=== PATIENT | female | born 1985 | race African-American/Black ===

== ENCOUNTER 2018-03-01 13:00 | Emergency (ER) | payer MEDICAID ==
[~2018-03-01] VITALS: Ht 160 cm; Wt 59.0 kg
[2018-03-01 13:03] VITALS: BP 116/71
[2018-03-01] MEDS ORDERED: LORazepam Inj 2mg/ml 1ml IV ONE (13:15)
[2018-03-01] MEDS ORDERED: levETIRAcetam 500 MG in D5W 110 ML IV ONE (13:15)
--- NOTE | 2018-03-01 13:21 | Emergency Room Report ---
History of Present Illness General Chief Complaint: Seizure Source: Patient, EMS Present Illness HPI EMS were summoned because the patient had a seizure. The patient was at work. She's had a history of one prior seizure in the past. It was felt to be related to alcohol withdrawal and so she does not take any medication. She has been driving. The patient bit her inner lip and also has some blood coming out of her left ear canal. [place] [facility] [place] however they still directed the patient to our facility. The patient is complaining about headache and lip pain. She states her last period was February 27 and she does not believe she is . She's been having abdominal problems with the alcohol consumption. She has epigastric pain and nausea on occasion. She denies vomiting blood or melena. She denies dysuria. No neck or spine tenderness. No dyspnea or cough. 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 Nursing Documentation: PMH: Agreed; PSxH: Agreed Nursing Documentation-PMH Past Medical History: No History, Except For Hx Seizures: Yes Review of Systems All Other Systems: negative except mentioned in HPI Physical Exam Vital Signs Date Time Temp Pulse Resp B/P (MAP) Pulse Ox O2 Delivery O2 Flow Rate FiO2 03/01/18 12:56 99.0 80 16 103/71 99 Room Air 99.0 Sp02 EP Interpretation: reviewed, normal General Appearance: well appearing, no apparent distress, Postictal Head: normocephalic Eyes: bilateral eye normal inspection, bilateral eye PERRL, bilateral eye EOMI ENT: hearing grossly normal, moist mucus membranes - inner lip contusion, tongue macerations, other - blood from L ear canal Neck: supple, no bony tend Respiratory: chest non-tender, lungs clear, normal breath sounds Cardiovascular #1: regular rate, rhythm Cardiovascular #2: 2+ radial (R) Gastrointestinal: normal inspection, non tender, no mass, non-distended, decreased bowel sounds, scaphoid Genitourinary: no CVA tenderness Musculoskeletal: back normal, normal range of motion, non-tender, no calf tenderness Neurologic: alert, machine whitener III-XII nml as tested, motor strength/tone normal, DTRs symmetric, sensory intact, cerebellar normal, speech normal - somewhat halting, oriented - X2 Psychiatric: depressed affect Skin: normal inspection, warm/dry Medical Decision Making Diagnostic Impression: Primary Impression: Seizure Additional Impressions: Head injury Qualified Codes: S09.90XA - Unspecified injury of head, initial encounter Alcohol abuse Left ear canal injury ER Course Patient presents with a second seizure. Differential includes withdrawal, underlying seizure disorder amongst others. She has blood coming from the left ear canal and we need to exclude a basilar skull fracture. CT is indicated as well as labs. The patient retreated with Ativan and Keppra. Also DMV will be notified. EKG without injury. CXR clear. CT without bleed or fx. Labs with + BA. K slightly low. Patient with clearing. Reports withdrawal symptoms if stops drinking and requests med for this. Advised of seizure precautions and need for follow up. Patient stable for outpatient observation and treatment. Laboratory Tests Test 03/01/18 13:20 03/01/18 14:20 White Blood Count 5.3 K/UL (4.8-10.8) Red Blood Count 3.85 M/UL (4.20-5.40) L Hemoglobin 13.2 G/DL (12.0-16.0) Hematocrit 37.8 % (37.0-47.0) Mean Corpuscular Volume 98 FL (80-99) Mean Corpuscular Hemoglobin 34.2 PG (27.0-31.0) H Mean Corpuscular Hemoglobin Concent 34.8 G/DL (32.0-36.0) Red Cell Distribution Width 11.1 % (11.6-14.8) L Platelet Count 132 K/UL (150-450) L Mean Platelet Volume 8.9 FL (6.5-10.1) Neutrophils (%) (Auto) 65.7 % (45.0-75.0) Lymphocytes (%) (Auto) 20.4 % (20.0-45.0) Monocytes (%) (Auto) 9.7 % (1.0-10.0) Eosinophils (%) (Auto) 2.5 % (0.0-3.0) Basophils (%) (Auto) 1.9 % (0.0-2.0) Sodium Level 137 MMOL/L (136-145) Potassium Level 3.3 MMOL/L (3.5-5.1) L Chloride Level 100 MMOL/L (98-107) Carbon Dioxide Level 24 MMOL/L (21-32) Anion Gap 13 mmol/L (5-15) Blood Urea Nitrogen 3 mg/dL (7-18) L Creatinine 0.7 MG/DL (0.55-1.30) Estimate Glomerular Filtration Rate > 60 mL/min (>60) Glucose Level 96 MG/DL (74-106) Calcium Level 9.2 MG/DL (8.5-10.1) Total Bilirubin 0.6 MG/DL (0.2-1.0) Aspartate Amino Transferase (AST) 101 U/L (15-37) H Alanine Aminotransferase (ALT) 51 U/L (12-78) Alkaline Phosphatase 89 U/L (46-116) Total Protein 8.2 G/DL (6.4-8.2) Albumin 3.9 G/DL (3.4-5.0) Globulin 4.3 g/dL Albumin/Globulin Ratio 0.9 (1.0-2.7) L Salicylates Level 3.7 ug/mL (2.8-20) Acetaminophen Level < 2 MCG/ML (10-30) L Serum Alcohol 49 mg/dL Urine HCG, Qualitative Negative (NEGATIVE) Urine Opiates Screen Negative (NEGATIVE) Urine Barbiturates Screen Negative (NEGATIVE) Phencyclidine (PCP) Screen Negative (NEGATIVE) Urine Amphetamines Screen Negative (NEGATIVE) Urine Benzodiazepines Screen Negative (NEGATIVE) Urine Cocaine Screen Negative (NEGATIVE) Urine Marijuana (THC) Screen Negative (NEGATIVE) EKG Diagnostic Results Rate: normal Rhythm: NSR ST Segments: no acute changes Rhythm Strip Diag. Results EP Interpretation: yes Rhythm: NSR, no PVC's, no ectopy Chest X-Ray Diagnostic Results Chest X-Ray Diagnostic Results : Chest X-Ray Ordered: Yes # of Views/Limited/Complete: 1 View Indication: Other EP Interpretation: Yes Interpretation: no consolidation, no effusion, no pneumothorax Impression: No acute disease Electronically Signed by: Electronically signed by Ky Daniel MD CT/MRI/US Diagnostic Results CT/MRI/US Diagnostic Results : Imaging Test Ordered: head Impression no bleed, mass, fx Last Vital Signs Date Time Temp Pulse Resp B/P (MAP) Pulse Ox O2 Delivery O2 Flow Rate FiO2 03/01/18 15:25 98.6 93 24 121/69 100 Room Air 210.0 Status: improved Disposition: HOME, SELF-CARE Condition: Improved Scripts Neomycin/Polymyxin B Sulf/Hc* (CORTISPORIN EAR SOLUTION*) 10 Ml Solution 4 DROP LEFT EAR QID, #10 ML 0 Refills Prov: Ky Daniel M.D. 03/01/18 Levetiracetam (KEPPRA) 500 Mg Tablet 500 MG ORAL EVERY 12 HOURS, #60 TAB 0 Refills Prov: Ky Daniel M.D. 03/01/18 Chlordiazepoxide Hcl* (LIBRIUM*) 10 Mg Capsule 10 MG ORAL as directed, #20 CAP 0 Refills 2 tabs TID X 2 days, 1 tab TID X 2 days, 1 tab BID X 2 days, 1 tab QD X 2 days Prov: Ky Daniel M.D. 03/01/18 Referrals: NOT CHOSEN KINDRA/,REFERRING (PCP) Ky Daniel M.D. Mar 01, 2018 13:21
[2018-03-01 13:45] LABS: BASOPHILS % (AUTO) 1.9 % (0.0-2.0); EOSINOPHILS % (AUTO) 2.5 % (0.0-3.0); HEMATOCRIT 37.8 % (37.0-47.0); HEMOGLOBIN 13.2 G/DL (12.0-16.0); LYMPHOCYTES % (AUTO) 20.4 % (20.0-45.0); MEAN CORPUSCULAR VOLUME 98 FL (80-99); MONOCYTES % (AUTO) 9.7 % (1.0-10.0); NEUTROPHILS % (AUTO) 65.7 % (45.0-75.0); PLATELET COUNT 132 K/UL (150-450); RED BLOOD COUNT 3.85 M/UL (4.20-5.40); RED CELL DISTRIBUTION WIDTH 11.1 % (11.6-14.8); WHITE BLOOD COUNT 5.3 K/UL (4.8-10.8)
[2018-03-01 13:54] LABS: ANION GAP 13 mmol/L (5-15); BLOOD UREA NITROGEN 3 mg/dL (7-18); CALCIUM 9.2 MG/DL (8.5-10.1); CARBON DIOXIDE 24 MMOL/L (21-32); CHLORIDE 100 MMOL/L (98-107); CREATININE 0.7 MG/DL (0.55-1.30); POTASSIUM 3.3 MMOL/L (3.5-5.1); SODIUM 137 MMOL/L (136-145)
[2018-03-01 13:59] LABS: ALANINE AMINOTRANSFERASE 51 U/L (12-78); ALBUMIN 3.9 G/DL (3.4-5.0); ALBUMIN/GLOBULIN RATIO 0.9 (1.0-2.7); ALKALINE PHOSPHATASE 89 U/L (46-116); ASPARTATE AMINO TRANSFERASE 101 U/L (15-37); BILIRUBIN,TOTAL 0.6 MG/DL (0.2-1.0)
--- NOTE | 2018-03-01 14:12 | Diagnostic Imaging Report ---
Indication: Seizure Technique: Contiguous 5 mm thick transaxial imaging of the head obtained in a Siemens Sensation [address] scanner. Soft tissue and bone windows generated. Automatic Exposure Control was utilized. Total Dose length Product (DLP): 1245.[address] Dose Index Volume (CTDIvol): 70.38 mGy Comparison: none Findings: The size and configuration of the cortical sulci, basal cisterns, and ventricles are within normal limits for age. There is no mass effect, midline shift, or edema identified. There is no evidence of acute hemorrhage or abnormal intra-axial or extra-axial fluid collections. The bones and soft tissues are unremarkable. Impression: No mass effect, edema or acute bleed. The CT scanner at [facility] is accredited by the [employer] and the scans are performed using dose optimization techniques as appropriate to a performed exam including Automatic Exposure control.
[2018-03-01] MEDS ORDERED: KEPPRA500 M4 ORAL (15:08)
[2018-03-01] MEDS ORDERED: CORTISPORIN EAR10 ML LEFT EAR (15:08)
[2018-03-01] MEDS ORDERED: LIBRIUM10 MG ORAL (15:08)
[2018-03-01 15:25] VITALS: BP 121/69
--- NOTE | 2018-03-01 15:25 | Diagnostic Imaging Report ---
Indication: Trauma. Chest pain Comparison: None A single view chest radiograph was obtained. Findings: Cardiomediastinal appearance is within normal limits for age. Pulmonary vascularity is appropriate. The diaphragmatic contour is smooth and costophrenic angles are sharp. No pleural effusions are identified. The bones are unremarkable. Impression: No acute findings
--- NOTE | 2018-03-04 12:20 | Cardiology Report ---
APPROVED REPORT EKG Measurement Heart [id number] Normal sinus rhythm Normal ECG
== END 2018-03-01 15:25 | disposition home or self-care (01) ==
LOC: EDBD 13:00 → EMR 13:07
DX: R56.9 Unspecified convulsions (principal); S09.90XA Unspecified injury of head, initial encounter; F10.10 Alcohol abuse, uncomplicated; S09.91XA Unspecified injury of ear, initial encounter; X58.XXXA Exposure to other specified factors, initial encounter; Y92.9 Unspecified place or not applicable; Y99.0 Civilian activity done for income or pay
CPT/HCPCS: 36415; 70450; 71045; 80053; 80307; 80329; 81025; 85025; 93005; 99284; J1953